=== PATIENT | male | born 1955 | race Caucasian/White ===

== ENCOUNTER 2023-03-03 14:38 | Emergency (ER) | payer MEDICARE, SELFPAY ==
[2023-03-03 14:48] VITALS: O2SAT 97
--- NOTE | 2023-03-03 14:48 | CRLHL7_ITS ---
For Patients: As a result of the Cures Act, medical imaging exams and procedure reports are released immediately into your electronic medical record. You may view this report before your referring provider. If you have questions, please contact your health care provider. Indication: Trauma and pain Technique: Right shoulder 3 views. Comparison: None Impression: Anterior inferior dislocation of the humeral head in relation to the glenoid. Osseous fragment adjacent to the posterior humeral head, concerning for fracture fragment. Additionally, there is cortical irregularity involving the posterior-inferior glenoid, concerning for Bankart fracture. Recommend follow-up imaging to better evaluate following reduction. Dictated by Amol Ramírez MD @ 03/03/2023 3:40:23 PM (Electronically Signed)
[2023-03-03 14:55] VITALS: BP 161/89; PULSE 84; RESP 20; TEMP 36; O2SAT 97; BMI 34.4
[2023-03-03] MEDS: MORPHINE 4 MG/ML INJ IVP (15:00)
[2023-03-03] MEDS: ONDANSETRON 2 MG/ML inj 4 MG IVP (15:40)
[2023-03-03] MEDS: PROPOFOL 10 MG/ML INJ 200 MG IVP (15:54)
--- NOTE | 2023-03-03 16:11 | RESP.RT ---
Airway monitoring for closed reduction of shoulder. See nursing notes for vitals.
--- NOTE | 2023-03-03 16:19 | CRLHL7_ITS ---
For Patients: As a result of the Cures Act, medical imaging exams and procedure reports are released immediately into your electronic medical record. You may view this report before your referring provider. If you have questions, please contact your health care provider. Indication: Postreduction Technique: Two view right shoulder radiograph Comparison: Earlier today Findings: The right shoulder has been reduced to anatomic alignment. Hill-Sachs impaction fracture likely. No Bankart fracture seen, although would be difficult on the provided views. Impression: Normal right glenohumeral alignment. Dictated by Kylie Grion MD @ 03/03/2023 6:01:52 PM (Electronically Signed)
--- NOTE | 2023-03-03 16:28 | ED_ITS ---
HPI - General Adult General Date Seen: 03/03/23 Chief complaint: Shoulder Injury/Pain Stated complaint: right shoulder dislocated Time Seen by Provider: 03/03/23 14:48 Source: patient Mode of arrival: ambulatory Limitations: no limitations History of Present Illness HPI narrative: Patient is a 67-year-old male presenting with right shoulder pain. He states he was driving his open CT tractor when it tipped over story him off of it. States check did not land on top of him. Then in his right shoulder but denies hitting his head. Denies headache, weakness, numbness, fevers, chills, lightheadedness, dizziness. His main complaint is this shoulder pain. Initially went to urgent care and was sent to us. There is concerned he has dislocated shoulder. Does states he has some numbness to his index finger and thumb at this time. No other concerns Related Data Home Medications Medication Instructions Recorded Confirmed No Known Home Medications 03/03/23 03/03/23 Allergies Allergy/AdvReac Type Severity Reaction Status Date / Time codeine Allergy Unknown Unknown Verified 03/03/23 14:55 Review of Systems Status of ROS: Reports: 10 or more systems reviewed and unremarkable except as noted in History and below [facility] Medical History (Updated 03/03/23 @ 18:44 by Rafal Singer DO) Hernia ?K46.9 - Unspecified abdominal hernia without obstruction or gangrene (ICD- 10) Surgical History (Updated 03/03/23 @ 16:08 by Haylie Gallegos RN) [place] teeth removed ?K08.409 - Partial loss of teeth, unspecified cause, unspecified class (ICD- 10) Social History Do you use any of these nicotine containing products: None Exam Narrative: Exam Narrative: Const: Well-nourished, Well-developed, in moderate distress Eyes: PERRL, no conjunctival injection, and symmetrical lids HENT: Atraumatic external nose and ears. Moist mucous membranes. Neck: Symmetric, trachea midline, No thyromegaly. CVS: RRR, No murmurs or gallops. Peripheral pulses 2+ and equal in all extremities RESP: Unlabored respiratory effort. Clear to auscultation bilaterally. GI: Nontender/Nondistended, No rebound or guarding. MSK: Apparent anterior shoulder dislocation on the right. No other injuries noted. No midline spinal tenderness Skin: Warm, Dry. No rashes or lesions. Neuro: Normal Muscle tone, mild numbness noted to the right 2nd and 1st digits. No other focal neurological deficits. GCS 15 Psych: Awake, Alert, & Oriented x3. Appropriate mood and affect. Const: Vital Signs, click to edit/add: Vital Signs - 24 hr 03/03/23 14:48 03/03/23 14:55 Temperature 96.8 F L Pulse Rate [Pulse Oximeter] 84 Respiratory Rate 20 Blood Pressure [Le ft Upper Arm] 161/89 H Pulse Oximetry 97 97 Oxygen Delivery Me thod Nasal Cannula Room Air Oxygen Flow Rate 3 Course Vital Signs Vital signs: Initial Vital Signs Pulse Oximetry 97 03/03/23 14:48 Oxygen Delivery Method Nasal Cannula 03/03/23 14:48 Oxygen Flow Rate 3 03/03/23 14:48 Vital Signs Pulse Oximetry 97 03/03/23 14:48 Oxygen Delivery Method Nasal Cannula 03/03/23 14:48 Oxygen Flow Rate 3 03/03/23 14:48 Temperature 96.8 F L 03/03/23 14:55 Pulse Rate 84 03/03/23 14:55 Respiratory Rate 20 03/03/23 14:55 Blood Pressure 161/89 H 03/03/23 14:55 Pulse Oximetry 97 03/03/23 14:55 Oxygen Delivery Method Room Air 03/03/23 14:55 Oxygen Flow Rate 3 03/03/23 14:48 Medications Administered Medications: Discontinued Medications Generic Name Dose Route Start Last Admin Trade Name Freq PRN Reason Stop Dose Admin Morphine Sulfate 4 mg 03/03/23 14:58 03/03/23 15:00 Morphine 4 Mg/Ml Inj IVP 03/03/23 14:59 4 mg ONCE ONE Administration Ondansetron HCl 4 mg 03/03/23 14:58 03/03/23 15:40 Ondansetron 2 Mg/Ml Inj IVP 03/03/23 14:59 4 mg ONCE ONE Administration Propofol 200 mg 03/03/23 15:19 03/03/23 15:54 Propofol 10 Mg/Ml Inj IVP 03/03/23 15:20 200 mg ONCE ONE Administration Medical Decision Making MDM Narrative Medical decision making narrative: Due to the mechanism of action a TTA was called. Patient is a 67-year-old male presenting for right shoulder pain appearing right shoulder dislocation. X-rays were ordered of the right shoulder showing a dislocation and concern for further fracture. We were able to reduce the shoulder using proper fall for procedure sedation. After this we did a repeat x-rays which shows a possible hill sachs deformity. Considering the mechanism of action I did find necessary to CT his head even though he denies hitting his head. He if he hit his right shoulder without much for see likely at least his headache something. CT of the head shows no concerning abnormalities. He is otherwise doing well at this time and can be discharged home. He is agreeable to this plan. He will follow-up outpatient with orthopedics Imaging Data CT scan - head: Radiologist's impression: 1. No radiographic evidence of acute intracranial abnormalities. 2. Maxillary sinusitis. Dictated by Josias Ulloa MD @ 03/03/2023 6:23:56 PM Please note that all CT scans at this facility use dose modulation, iterative reconstruction, and/or weight-based dosing when appropriate to reduce radiation dose to as low as reasonably achievable. Dictated by: Josias Ulloa MD @ 03/03/2023 18:24:06 Initial right shoulder x-ray: Radiologist's impression: Anterior inferior dislocation of the humeral head in relation to the glenoid. Osseous fragment adjacent to the posterior humeral head, concerning for fracture fragment. Additionally, there is cortical irregularity involving the posterior-inferior glenoid, concerning for Bankart fracture. Recommend follow-up imaging to better evaluate following reduction. Dictated by Amol Ramírez MD @ 03/03/2023 3:40:23 PM Post reduction right shoulder x-ray: Radiologist's impression: Normal right glenohumeral alignment. Dictated by Kylie Giron MD @ 03/03/2023 6:01:52 PM Discharge Plan Discharge Clinical Impression: Anterior dislocation of right shoulder Qualifiers: Encounter type: initial encounter Qualified Code(s): S43.014A - Anterior dislocation of right humerus, initial encounter Patient Disposition: Home, Self-Care Condition: Improved Instructions: Shoulder Dislocation (ED) Additional Instructions: Keep your arm in the sling until cleared by Orthopedics. Call them tomorrow morning to schedule follow-up. The number is [phone]. take NSAIDs for pain. Return for new or worsening symptoms Prescriptions: No Action No Known Home Medications Follow Up/Referrals: José Frausto MD [Primary Care Provider] - Stand Alone Forms: [facility] Info Instructions Procedures Orthopedic Joint Reduction Right shoulder: Written consent by: patient Time Out Performed: Yes Side: right Joint Reduction Location: shoulder Manipulation used?: Yes Analgesia: procedural sedation Shoulder Technique Used (if applicable): traction/counter-traction Post-reduction neuro vascular exam: intact Post Reduction X-Ray Obtained: Yes Post Reduction X-Ray Results: reduced Splint Applied: Yes Patient Tolerated Procedure: well
--- NOTE | 2023-03-03 16:33 | W.ED.CHARTNO ---
ED Chart Note Chart Note Details Date: 03/03/23 Details: I was asked to supply anesthesia for this patient. ASA score was 2, please see anesthesia record. No complications, propofol 200 mg iv was given. Provider was called away to rescuscitate the patient. I was able to use towel, counter traction and traction to atraumatically reduce the shoulder. No complications seen. Post reduction, there was improvement of the pain, and the small amount of altered sensation pre reduction on the left hand dorsum over the [address] web space was gone. Vascularly good radial and brachial pulses, and movement of the fingers, wrist dorsiflexion, first finger thumb opposition were improved. Shoulder contour improved. Awaiting xray post reduction.
--- NOTE | 2023-03-03 17:01 | CRLHL7_ITS ---
For Patients: As a result of the Century Cures Act, medical imaging exams and procedure reports are released immediately into your electronic medical record. You may view this report before your referring provider. If you have questions, please contact your health care provider. INDICATION: Headache. Trauma. TECHNIQUE: Non-contrast CT of the head is submitted. No comparisons. FINDINGS: The ventricles, sulci and gyri are of normal size, shape and contour. Midline structures are centrally located. No convincing evidence of intra- or extra-axial fluid collections. Moderate mucosal thickening within the left maxillary sinus with mild mucosal thickening in the right maxillary sinus. IMPRESSION: 1. No radiographic evidence of acute intracranial abnormalities. 2. Maxillary sinusitis. Dictated by Josias Ulloa MD @ 03/03/2023 6:23:56 PM Please note that all CT scans at this facility use dose modulation, iterative reconstruction, and/or weight-based dosing when appropriate to reduce radiation dose to as low as reasonably achievable. Dictated by: Josias Ulloa MD @ 03/03/2023 18:24:06 (Electronically Signed)
--- NOTE | 2023-03-03 18:56 | ED.NURSE ---
see conscious sedation forms and vital sheet on paper form.
== END 2023-03-03 19:18 | disposition home or self-care (01) ==
PROVIDERS: Emergency Provider Student in an Organized Health Care Education/Training Program; PCP Family Medicine
DX: S43.034A Inferior dislocation of right humerus, initial encounter (principal); W31.89XA Contact with other specified machinery, initial encounter
CPT/HCPCS: 23650; 70450; 73030; 96374; 96375; 99156; 99283; 99285; 99291; G0390; J2270; J2405; J2704

== ENCOUNTER 2023-03-11 17:36 | Outpatient (CLI) | payer MEDICARE, SELFPAY ==
--- NOTE | 2023-03-11 18:15 | MR_ITS ---
[address] [address] Phone:?[phone] Fax:?[phone] Referring Physician Information: Olivier Turner M.D. [id number] [facility] [address] Phone:?[phone] Fax:?[phone] Patient:Mirta Lim D.O.B:?1955 Sex:?Male Phone:? [facility] MRN:?[id number] Exam Date:?03/11/2023 EXAM: MRI OF THE RIGHT SHOULDER CLINICAL INFORMATION: The patient is a 67-year-old with right shoulder pain and instability evaluate for dislocation and/or rotator cuff tear. PRIOR SURGERY: None reported. COMPARISON STUDIES: There are no prior studies available for comparison. TECHNICAL INFORMATION: Using a 1.5T MR scanner and a localizing shoulder surface coil: 3.0 mm?coronal obliques: PD, T2, STIR 3.0 mm?sagittal obliques: PD, T2 3.0 mm?axials: PD, T2 FINDINGS: Articular/Extraarticular collections: Effusion: Moderate. Subacromial/subdeltoid: Moderate fluid is seen within the subacromial/subdeltoid bursa, in keeping with bursitis or bursal hemorrhage. Subcoracoid: Moderate to severe fluid and low signal intensity material can be seen within the region of the subcoracoid bursa on sagittal series 9 image 13 and on axial series 3 image 19, in keeping with bursal hemorrhage. Osseous structures: Proximal humerus: Imaging of the proximal humerus demonstrates a broad-based area of bony impaction and marrow edema involving the posterior, superior, and lateral aspects of the humeral head seen on coronal series 4 image 18 and on axial series 3 image 11. The findings are in keeping with a broad-based area of bony impaction, and are consistent with an anterior dislocation event. No other well-defined fracture of the proximal humerus can be seen. Glenoid: There is a bony Bankart lesion involving the anteroinferior aspect of the glenoid seen on sagittal series 9 image 17 and on coronal series 4 image 14, measuring approximately 22 mm in greatest dimension. Moderate marrow edema is seen. The findings are also in keeping with an anterior dislocation event. CT scanning may be helpful in further evaluation of the glenoid injury. No other definite bony abnormalities of the glenoid are noted. There is a suspected displaced fracture involving the distal tip of the coracoid process seen on axial series 3 image 13 and on coronal series [address] scanning may also be helpful in further evaluation of this finding. Acromioclavicular joint: Moderate changes of acromioclavicular joint arthrosis are present and can be seen on coronal series 4 image 15. Coracoacromial arch: Acromion morphology: Type II. No evidence for os acromiale. Acromiohumeral space: Moderately narrowed. Coracohumeral space: No evidence for narrowing can be seen. Rotator cuff and deltoid: Supraspinatus: Broad-based, full-thickness tearing of the supraspinatus tendon can be seen on coronal series 4 image 17 and on sagittal series 9 image 6. The full-thickness tearing measures 51 mm in mediolateral dimension and 29 mm in anteroposterior dimension. Atrophic changes of the supraspinatus muscle belly are seen. Infraspinatus: Broad-based, full-thickness tearing of the infraspinatus tendon can be seen on coronal series 4 image 21 and on sagittal series 9 image 5. The tearing measures 38 mm in mediolateral dimension and 28 mm in anteroposterior dimension. Atrophic changes of the infraspinatus muscle belly are seen. Teres minor: No evidence for tendinosis, tearing, or associated muscle belly atrophy. Subscapularis: Broad-based, full-thickness tearing of the subscapularis tendon can be seen on axial series 3 image 18 and on sagittal series 9 image 13. The tearing measures 50 mm in mediolateral dimension and 45 mm in craniocaudal dimension. Strain and/or atrophic changes of the subscapularis muscle belly are noted. Deltoid: No evidence for strain or tearing. Biceps tendon: Tendinosis, flattening, and medial dislocation of the long head of the biceps can be seen. No evidence for rupture of the long head of the biceps can be seen. As mentioned above, there is a suspected displaced fracture involving the tip of the coracoid process, including the attachment site of the short head of the biceps. Glenohumeral joint and labrum: Articular Cartilage: Chondromalacia and chondral loss along the articular surfaces of the glenohumeral articulation can be seen without definite osteoarthritic change. Labrum: Degeneration and tearing of the entire glenoid labrum can be seen. No definite paralabral ganglion cyst formation is noted. Capsular Soft Tissues: Broad-based tearing of the capsular structures along the anterior and anteroinferior aspects of the glenohumeral articulation can be seen. CONCLUSION: 1. Findings in keeping with an anterior dislocation event, including bony injuries of the humeral head, glenoid, and coracoid tip. CT scanning may be helpful in further evaluation of the bony injuries. 2. Broad-based, full-thickness tearing of the supraspinatus, infraspinatus, and subscapularis tendons. 3. Tendinosis and medial dislocation of the long head of the biceps. 4. Glenohumeral joint effusion with subacromial/subdeltoid and subcoracoid bursitis and bursal hemorrhage. 5. No osteoarthritic changes of the glenohumeral articulation are identified. 6. Degeneration and tearing of the glenoid labrum. 7. Moderate acromioclavicular joint arthrosis with moderate narrowing of the acromiohumeral space. [facility] Electronically signed on 03/12/2023 9:44:00 AM by Corey Henson M.D.
== END 2023-03-11 17:37 | disposition home or self-care (01) ==
LOC: MRI 17:36
PROVIDERS: PCP Family Medicine; Visit Provider Orthopaedic Surgery
DX: M25.511 Pain in right shoulder (principal); M75.101 Unspecified rotator cuff tear or rupture of right shoulder, not specified as traumatic; M25.411 Effusion, right shoulder; M19.011 Primary osteoarthritis, right shoulder; S43.014A Anterior dislocation of right humerus, initial encounter; S49.91XA Unspecified injury of right shoulder and upper arm, initial encounter
CPT/HCPCS: 73221

== ENCOUNTER 2023-04-08 13:15 | Outpatient (RCR) | payer MEDICARE, SELFPAY ==
--- NOTE | 2023-03-17 11:46 | PT.OPEX ---
[facility] initial eval requires signature PT [facility] Outpatient Eval Start: 03/17/23 07:41 Freq: Status: Active Protocol: Document 03/17/23 07:43 GABRIELA (Rec: 03/17/23 11:43 GABRIELA [id number]) E-signed By TONIE HernandezT Physical Therapy Outpatient Evaluation Insurance Information Recert Due Date 06/10/23 Insurance Name Medicare B,[employer] Medical Diagnosis R rotator cuff tear R anterior shoulder dislocation Treating Diagnosis R shoulder pain muscle weakness Referring MD raven lee Subjective Subjective Shimon comes into clinic dealing with R shoulder pain due to RC tearing and hx of anterior dislocation- this all happened about two weeks ago. States he dislocated the shoulder when tipping a tractor over. Since than he has been using the arm minimally, mainly keeping at this side. 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 Sleeping has been ok but notices pains at time with laying on the arm or getting stuck behind him. He usually depends heavily on the R shoulder. Wants to get back to his level of function prior to this injury. Pain Comments 0-10 Current Work Status Financial Analyst Occupation self employed [employer] Precautions Treatment Precautions/Contraindications MRI of the right shoulder bony Bankart fracture consistent with an anterior dislocation, full-thickness tearing of the supra and infraspinatus There is tearing of the subscap, with medial dislocation of the biceps. moderate AC joint arthrosis. Objective Other/Pertinent Objective SHOULDER AROM Flexion: R 20 degrees L 155/ / prom on R 92degrees Abduction: R 30 degrees L 157 pain ful // prom on R 70 degrees Internal Rotation: R belt line L T 10 External Rotation: R5 degrees L 63 // prom on R neutral due to increased pain NECK/SHOULDER MMT: Shoulder flexion: R 2-/5 L 4-/ 5 Shoulder abduction: R2- /5 L 3 -/5 Shoulder External Rotation: R3 /5 L 4+/5 Shoulder Internal Rotation: R 3/5 L4+ /5 Elbow flexion: R3 /5 L5 /5 Elbow extension R 4/5 L 5/5 JOINT MOBILITY/PALPATION increased anterior joint pain, pain along AC joint bicep tenderness increased guarding Assessment Assessment/Impression Pt is a 67 yr old male who presents with concerns of rt shoulder pain. Signs and symptoms likely indicating / consistent with Rt Rc tear and hx anterior shoulder dislocation . Patient also has notable objective findings including limited ROM, impaired shoulder stability, decreased strength also likely contributing to the problem. Patient is a good candidate for skilled therapy to target deficits described above. Skilled PT intervention is necessary for use of therapeutic exercise manual therapy, neuromuscular re- education, and therapeutic activity. Functional impairments include difficulty with: lifting reaching pushing pulling sleeping. See appropriate sections of PT eval for complete list of goals and POC. D/C plan and criteria is for pt to achieve the goals as listed below or until max rehab potential is met. Pt was agreeable with plan of care and goals established Plan of Care Rehabilitation Potential Good Physical Therapy Goals STG Patient will demonstrate/ report ability to reach to 100 -120 degrees shoulder flexion and abduction with pain level <1/10, to allow for plastic parts fabricator, hygiene, work within 6 weeks Pt will be able to demonstrate / report ability to lift #2-3 from floor counter height to overhead without pain within 6weeks, for household and work activity Patient will demonstrate/ report ability to sleep with losing <1 hours of sleep being interrupted by R shoulder pain pain. within 6 weeks . 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 Coordination/Communication With Referral Source Treatment Plan/Direct Interventions Joint Mobilization,Manual Therapy,Neuromuscular Re-ed, Self-Care/Home Management, Therapeutic Activities, Therapeutic Exercises Frequency/Duration 1-2 visits a week for 14-20 visits Patient Will Be Discharged From Therapy Completion of LTG(s), Independent w/HEP Evaluation Billing Untimed Code Treatment Minutes 30 Complexity Moderate Certification Information Physician Comment/Change : Physician NPI Number #
== END 2023-06-18 14:04 | disposition home or self-care (01) ==
PROVIDERS: PCP Family Medicine; Visit Provider Orthopaedic Surgery
DX: M75.101 Unspecified rotator cuff tear or rupture of right shoulder, not specified as traumatic (principal); S43.014A Anterior dislocation of right humerus, initial encounter; M25.311 Other instability, right shoulder; M62.81 Muscle weakness (generalized); M25.511 Pain in right shoulder; Z51.89 Encounter for other specified aftercare
CPT/HCPCS: 97110; 97112; 97140; 97162